=== PATIENT | male | born 1965 | race Caucasian/White ===

== ENCOUNTER 2016-08-17 23:13 | Emergency (ER) | payer OTHER | END 2016-08-17 23:14 | disposition home or self-care (01) | LOC: CED 23:13 | DX: A08.4 Viral intestinal infection, unspecified (principal); Z88.0 Allergy status to penicillin | CPT/HCPCS: 99282 ==

== ENCOUNTER 2016-11-17 18:23 | Emergency (ER) | payer OTHER ==
--- NOTE | ~2016-11-17 | CR93 ---
[facility] A Service of [facility] & [facility] RADIOLOGY TEXT RESULTS PATIENT: KRISTAN BIRD LOCATION: CFTX : 65 UNIT #: [id number] AGE: [address]: Miranda Barnes APRN SEX: M ORDER DR: [id number] [facility] [address]. [place], [place] [address] [id number] E MR#: [id number] Acc #: [id number] NAME: KRISTAN BIRD : 1965 SEX: M STUDY DATE/TIME: 11/17/2016 20:40 UNIT: [facility] ROOM: STUDY DESCRIPTION: CR Elbow Min 3 Views Lt Attending Physician: Miranda Barnes A.P.R.N. Ordering Physician: Miranda Barnes A.P.R.N. Primary Care Physician: [facility] MEDICAL IMAGING REPORT This report is preliminary unless electronic signature is present EXAM Left elbow 3 views HISTORY Patient injured left elbow today and now has pain. COMMENT Three views of the left elbow reviewed. No prior. There is no acute fracture, dislocation, or radiopaque foreign body. IMPRESSION Negative. Dictated by... Brenda Rodgers M.D. THIS IS AN ELECTRONICALLY VERIFIED REPORT Brenda Rodgers M.D. at 11/18/2016 10:05 AM TANG/padmini TD: 11/18/2016 06:17 JOB #: [id number] MEDICAL IMAGING REPORT Page 1 of 1 COPY
--- NOTE | ~2016-11-17 | CR181 ---
[facility] A Service of [facility] & [facility] RADIOLOGY TEXT RESULTS PATIENT: KRISTAN BIRD LOCATION: CFTX : 65 UNIT #: [id number] AGE: [address]: Miranda Barnes APRN SEX: M ORDER DR: [id number] [facility] [address]. [place], [place] [address] [id number] E MR#: [id number] Acc #: [id number] NAME: KRISTAN BIRD : 1965 SEX: M STUDY DATE/TIME: 11/17/2016 20:40 UNIT: [facility] ROOM: STUDY DESCRIPTION: CR Lumbar Spine 2 or 3 Views Attending Physician: Miranda Barnes A.P.R.N. Ordering Physician: Miranda Barnes A.P.R.N. Primary Care Physician: [facility] MEDICAL IMAGING REPORT This report is preliminary unless electronic signature is present EXAM Lumbar spine 2 or 3 views HISTORY Trauma today. Patient twisted low back and left elbow and now has pain in the low back and the left elbow. Pain in the back is mostly on the left side. COMMENT AP, lateral lumbosacral views lumbar spine reviewed. Comparison 08/01/2016. There is normal sagittal alignment. There is no acute fracture. There is loss of intervertebral disc height L5-S1. Mild multilevel anterior endplate spondylosis is noted. There is lower lumbar facet arthritis. IMPRESSION Plain film evidence for lumbar degenerative disease but no acute fracture or traumatic malalignment. No bone destruction suspected. Dictated by... Brenda Rodgers M.D. THIS IS AN ELECTRONICALLY VERIFIED REPORT rBenda Rodgers M.D. at 11/18/2016 10:05 AM TANG/padmini TD: 11/18/2016 06:14 JOB #: [id number] MEDICAL IMAGING REPORT Page 1 of 1 COPY
== END 2016-11-17 21:10 | disposition home or self-care (01) ==
LOC: CFTX 18:23 → CED 18:23 → CFTX 19:54
DX: S53.402A Unspecified sprain of left elbow, initial encounter (principal); S39.012A Strain of muscle, fascia and tendon of lower back, initial encounter; Z90.89 Acquired absence of other organs; X50.9XXA Other and unspecified overexertion or strenuous movements or postures, initial encounter; Y92.89 Other specified places as the place of occurrence of the external cause; Y99.0 Civilian activity done for income or pay
CPT/HCPCS: 29260; 72100; 73080; 96372; 99283; J1885